=== PATIENT | male | born 1950 | race Caucasian/White ===

== ENCOUNTER 2024-01-02 13:48 | Outpatient (CLI) | payer MEDICARE ==
[2024-01-02 15:19] LABS: #Basophils 0.03 10x3/uL (0.0-0.2); %Basophils 0.4 % (0.0-1.0); %Eosinophils 0.4 % (0.0-10.0); %Lymphocytes 24.7 % (21.0-51.0); %Monocytes 8.1 % (0.0-10.0); %Neutrophils 66.3 % (42.0-75.0); Hematocrit 44.4 % (42.0-52.0); Hemoglobin 15.1 g/dL (14.0-18.0); Mean Corpuscular Hemoglobin 31.9 pg (27.0-31.0); Mean Corpuscular Volume 93.9 fL (78.0-98.0); Mean Platelet Volume 10.8 fL (7.4-10.4); Platelet Count 177 10x3/uL (130-400); RBC Distribution Width 12.4 % (11.5-14.5); Red Blood Cell (RBC) Count 4.73 mill/uL (4.70-6.10)
[2024-01-02 15:39] LABS: Anion Gap 14 mmol/L (10-20); BUN (Urea Nitrogen) 20 mg/dL (8.4-25.7); Calc. Creatinine Clearance 0 mL/min (70-130); Calcium 9.7 mg/dL (7.8-10.44); Carbon Dioxide 26 mmol/L (23-31); Chloride 105 mmol/L (98-107); Estimated GFR 72; Glucose 106 mg/dL (83-110); Potassium 4.2 mmol/L (3.5-5.1); Sodium 141 mmol/L (136-145)
== END 2024-01-02 13:49 | disposition home or self-care (01) ==
LOC: LABBT 13:48
PROVIDERS: ATTEND Thoracic Surgery (Cardiothoracic Vascular Surgery)
DX: Z01.818 Encounter for other preprocedural examination (principal); I65.22 Occlusion and stenosis of left carotid artery
CPT/HCPCS: 80048; 85025

== ENCOUNTER 2024-01-02 14:00 | Inpatient (IN) | payer MEDICARE ==
[2024-01-03] MEDS ORDERED: Lidocaine 1% MPF 2 ML VIAL ONE (07:52)
[2024-01-03] MEDS ORDERED: Midazolam HCl 2 mg/2 ml Vial ONE (08:14)
[2024-01-03] MEDS ORDERED: Bupivacaine PF 0.5% 30 ML VIAL ONE (08:30)
[2024-01-03] MEDS ORDERED: Heparin 5,000 UNITS/ML VIAL ONE (08:30)
[2024-01-03] MEDS ORDERED: EPINEPHrine 1 MG/ML VIAL ONE (08:30)
[2024-01-03] MEDS ORDERED: fentaNYL PF 100 MCG/2 ML SYRINGE ONE (09:08)
[2024-01-03] MEDS ORDERED: PROPOFOL 20 ML ONE (09:09)
[2024-01-03] MEDS ORDERED: CEFAZOLIN 2 GM VIAL ONE (09:28)
[2024-01-03] MEDS ORDERED: Rocuronium Bromide 10 MG/ML (10ML VIAL) ONE (10:28)
[2024-01-03] MEDS ORDERED: Glycopyrrolate 0.2 MG/ML 5 ML SYRINGE ONE (10:28)
[2024-01-03] MEDS ORDERED: Protamine Sulfate 50 MG/5 ML VIAL ONE (10:47)
[2024-01-03] MEDS ORDERED: SUGAMMADEX SODIUM 200 MG/2 ML VIAL ONE (10:49)
[2024-01-03] MEDS ORDERED: hydrALAZINE 20 MG/ML VIAL ONE (11:08)
[2024-01-03] MEDS ORDERED: Nitroglycerin 50 MG/250 ML BOT 250 ML IVPB PRN (11:25)
[2024-01-03] MEDS ORDERED: Promethazine HCl 25 MG/ML VIAL IM PRN (11:25)
[2024-01-03] MEDS ORDERED: Ipratropium/Albuterol 3 ML NEB NEB PRN (11:25)
[2024-01-03] MEDS ORDERED: traMADol HCl 50 MG TAB PO PRN (11:25)
[2024-01-03] MEDS ORDERED: hydrALAZINE 20 MG/ML VIAL SLOW IVP PRN (11:25)
[2024-01-03] MEDS ORDERED: fentaNYL 50 mcg/mL 1 mL Vial SLOW IVP PRN (11:25)
[2024-01-03] MEDS ORDERED: Ondansetron PF 4 MG/2 ML Vial IVP PRN (11:25)
[2024-01-03] MEDS ORDERED: Meperidine HCl/PF 25 MG (1 mL) VIAL ONE (11:38)
[2024-01-03] MEDS ORDERED: Ondansetron PF 4 MG/2 ML Vial ONE (11:39)
[2024-01-03] MEDS ORDERED: Phenylephrine 40 MG/NS 250 ML 40 MG in Premix 1 BAG IVPB PRN (11:47)
[2024-01-03 14:50] VITALS: BMI 29.0
[2024-01-03] MEDS: Sodium Chloride 0.9% 1,000 ML IV SCH (14:58)
[2024-01-03] MEDS: CEFAZOLIN 2 GM in Sodium Chloride 0.9% 100 ML IVPB SCH (18:16)
[2024-01-03] MEDS: Acetaminophen 325 MG TAB PO PRN (19:14)
[2024-01-03] MEDS: Atorvastatin Calcium 40 MG TAB PO SCH (20:04)
[2024-01-04] MEDS: Clopidogrel Bisulfate 75 MG TAB PO SCH (07:21)
[2024-01-04] MEDS: Aspirin Chewable 81 MG TAB PO SCH (07:21)
[2024-01-04] MEDS: Amlodipine 5 MG TAB PO SCH (07:22)
[2024-01-04] MEDS: FLU (Fluad Triv) TS24-25 (65UP)/MF59C/PF 45 MCG/0.5 ML Syringe IM ONE (07:28)
[2024-01-04 08:38] VITALS: TEMP 97.9
== END 2024-01-04 09:45 | disposition home or self-care (01) | DRG 36 ==
LOC: SURG A 01-03 06:52 → CCU 01-03 14:44
PROVIDERS: ADMIT Thoracic Surgery (Cardiothoracic Vascular Surgery); ATTEND Thoracic Surgery (Cardiothoracic Vascular Surgery)
PROC: 037J3DZ Dilation of Left Common Carotid Artery with Intraluminal Device, Percutaneous Approach (ICD-10-PCS; principal; 2024-01-03)
PROC: 037L3DZ Dilation of Left Internal Carotid Artery with Intraluminal Device, Percutaneous Approach (ICD-10-PCS; 2024-01-03)
PROC: B54BZZA Ultrasonography of Right Lower Extremity Veins, Guidance (ICD-10-PCS; 2024-01-03)
PROC: 3E033XZ Introduction of Vasopressor into Peripheral Vein, Percutaneous Approach (ICD-10-PCS; 2024-01-03)
DX: I65.23 Occlusion and stenosis of bilateral carotid arteries (principal); I10 Essential (primary) hypertension; E78.5 Hyperlipidemia, unspecified; Z79.899 Other long term (current) drug therapy; Z79.82 Long term (current) use of aspirin; Z98.49 Cataract extraction status, unspecified eye; Z82.49 Family history of ischemic heart disease and other diseases of the circulatory system; Z82.3 Family history of stroke
CPT/HCPCS: 80048; 85025; 86850; 86900; 86901; 93005; 93010; C1769; C1876; C1884; J0171; J0360; J0665; J1642; J1644; J2175; J2250; J2405; J2704; J2720; J7030

== ENCOUNTER 2024-01-26 07:08 | Inpatient (IN) | payer MEDICARE ==
[2024-01-26] MEDS ORDERED: fentaNYL PF 100 MCG/2 ML SYRINGE ONE (08:02)
[2024-01-26] MEDS ORDERED: PROPOFOL 20 ML ONE ×2 (08:02→10:41)
[2024-01-26] MEDS ORDERED: ePHEDrine Sulfate 50 MG/10 ML VIAL ONE (08:03)
[2024-01-26] MEDS ORDERED: SUGAMMADEX SODIUM 200 MG/2 ML VIAL ONE (08:03)
[2024-01-26] MEDS ORDERED: Sodium Chloride 0.9% 250 ML 250 ML ONE (08:04)
[2024-01-26] MEDS ORDERED: Rocuronium Bromide 10 MG/ML (10ML VIAL) ONE (08:07)
[2024-01-26] MEDS ORDERED: Ondansetron PF 4 MG/2 ML Vial ONE (08:08)
[2024-01-26] MEDS ORDERED: PHENYLEPHRINE-NS 100 MCG/ML 10 ML SYRINGE ONE (08:08)
[2024-01-26] MEDS ORDERED: Lidocaine 2% PF 5 ML VIAL ONE (08:08)
[2024-01-26] MEDS ORDERED: Heparin 10,000 UNITS/ 10 ML VIAL ONE (08:08)
[2024-01-26] MEDS ORDERED: Dexamethasone 20 MG/5 ML VIAL ONE (08:08)
[2024-01-26] MEDS ORDERED: Lidocaine 2% PF 100 mg/5 ml Syringe ONE (08:08)
[2024-01-26] MEDS ORDERED: Vasopressin 20 UNITS/ML VIAL ONE (08:21)
[2024-01-26] MEDS ORDERED: Protamine Sulfate 50 MG/5 ML VIAL ONE (08:27)
[2024-01-26] MEDS ORDERED: Lidocaine 1% MPF 2 ML VIAL ONE (08:51)
[2024-01-26] MEDS ORDERED: Heparin 5,000 UNITS/ML VIAL ONE (09:04)
[2024-01-26] MEDS ORDERED: EPINEPHrine 1 MG/ML VIAL ONE (09:04)
[2024-01-26] MEDS ORDERED: Bupivacaine PF 0.5% 30 ML VIAL ONE (09:04)
[2024-01-26] MEDS ORDERED: CEFAZOLIN 1 GM VIAL ONE (09:12)
[2024-01-26] MEDS ORDERED: Glycopyrrolate 0.2 MG/ML 5 ML SYRINGE ONE (10:29)
[2024-01-26] MEDS ORDERED: fentaNYL 50 mcg/mL 1 mL Vial ONE (10:42)
[2024-01-26] MEDS ORDERED: Meperidine HCl/PF 25 MG (1 mL) VIAL ONE (11:57)
[2024-01-26] MEDS: Sodium Chloride 0.9% 1,000 ML IV SCH (12:20)
[2024-01-26] MEDS ORDERED: Ipratropium/Albuterol 3 ML NEB NEB PRN (13:09)
[2024-01-26] MEDS ORDERED: CEFAZOLIN 2 GM in Sodium Chloride 0.9% 100 ML IVPB SCH (13:09)
[2024-01-26] MEDS ORDERED: fentaNYL 50 mcg/mL 1 mL Vial SLOW IVP PRN (13:09)
[2024-01-26] MEDS ORDERED: hydrALAZINE 20 MG/ML VIAL SLOW IVP PRN (13:09)
[2024-01-26] MEDS ORDERED: Nitroglycerin 50 MG/250 ML BOT 250 ML IVPB PRN (13:09)
[2024-01-26] MEDS ORDERED: traMADol HCl 50 MG TAB PO PRN (13:09)
[2024-01-26] MEDS ORDERED: Ondansetron PF 4 MG/2 ML Vial IVP PRN (13:09)
[2024-01-26] MEDS ORDERED: Phenylephrine 40 MG/NS 250 ML 250 ML ONE (14:18)
[2024-01-26] MEDS: Phenylephrine 40 MG/NS 250 ML 250 ML IVPB PRN (14:25)
[2024-01-26] MEDS ORDERED: DOPamine 400 MG/D5W 250 ML 250 ML ONE (15:48)
[2024-01-26] MEDS ORDERED: Sodium Chloride 0.9% 100 ML ONE (19:52)
[2024-01-26] MEDS ORDERED: CEFAZOLIN 2 GM VIAL ONE (19:52)
[2024-01-26] MEDS: CEFAZOLIN 2 GM in Sodium Chloride 0.9% 100 ML IVPB SCH (19:56)
[2024-01-26] MEDS ORDERED: Amlodipine 10 MG TAB PO SCH (21:00)
[2024-01-26] MEDS ORDERED: Non-Formulary Item 1 EACH (Atorvastatin Calcium [Lipitor] 80 MG Tablet) PO SCH (21:00)
[2024-01-26] MEDS: Clopidogrel Bisulfate 75 MG TAB PO SCH (21:31)
[2024-01-26] MEDS: Atorvastatin Calcium 40 MG TAB PO SCH (21:31)
[2024-01-26] MEDS: Aspirin Chewable 81 MG TAB PO SCH (21:31)
[2024-01-26] MEDS: Acetaminophen 325 MG TAB PO PRN (21:32)
[2024-01-26] MEDS: Amlodipine 5 MG TAB PO SCH (21:40)
[2024-01-26] MEDS: Ipratropium/Albuterol 3 ML NEB NEB SCH (21:41)
[2024-01-26 21:42] VITALS: BP 141/70
[2024-01-26 21:43] VITALS: BMI 28.6
[2024-01-27 09:15] VITALS: BMI 28.6
[2024-01-27] MEDS: DOPamine 400 MG/D5W 250 ML 250 ML IVPB SCH (13:40)
[2024-01-28 13:22] VITALS: TEMP 98
== END 2024-01-28 15:10 | disposition home or self-care (01) | DRG 36 ==
LOC: SURG A 07:08 → EDSTATUS 16:20 → CCU 21:18
PROVIDERS: ADMIT Thoracic Surgery (Cardiothoracic Vascular Surgery); ATTEND Thoracic Surgery (Cardiothoracic Vascular Surgery)
PROC: 037K3DZ Dilation of Right Internal Carotid Artery with Intraluminal Device, Percutaneous Approach (ICD-10-PCS; principal; 2024-01-26)
DX: I65.21 Occlusion and stenosis of right carotid artery (principal); Z79.899 Other long term (current) drug therapy; I10 Essential (primary) hypertension; Z98.890 Other specified postprocedural states; E78.5 Hyperlipidemia, unspecified
CPT/HCPCS: 94640; C1725; C1769; C1876; C1884; J0171; J0665; J0690; J1100; J1265; J1642; J1644; J2003; J2175; J2405; J2704; J2720; J3010; J7030; J7050; J7620